=== PATIENT | female | born 1985 | race Caucasian/White ===

== ENCOUNTER 2019-12-03 18:26 | Emergency (ER) | payer SELFPAY ==
[~2019-12-03] VITALS: Ht 162.6 cm; Wt 140.9 kg
[2019-12-03 18:30] VITALS: BP 120/75; PULSE 104; TEMP 98.1
[2019-12-03] MEDS ORDERED: TESSALON P100 MG/CAP PO (19:58)
== END 2019-12-03 20:20 | disposition home or self-care (01) ==
LOC: COL.ER 18:26
DX: R05 Cough (principal); H92.03 Otalgia, bilateral; E11.9 Type 2 diabetes mellitus without complications; F17.290 Nicotine dependence, other tobacco product, uncomplicated; Z68.43 Body mass index [BMI] 50.0-59.9, adult; E66.01 Morbid (severe) obesity due to excess calories; Z90.49 Acquired absence of other specified parts of digestive tract; Z79.4 Long term (current) use of insulin